=== PATIENT | male | born 1985 | race Caucasian/White ===

== ENCOUNTER 2020-06-06 05:35 | Inpatient (IN) | payer OTHER ==
[~2020-06-06] VITALS: Ht 177.8 cm; Wt 83.0 kg
--- NOTE | 2020-06-06 06:00 | NUR ---
IV ACCESS OBTAINED PT DRANK APPROX 600 ML WATER STATES HE HASN'T HAD ANYTHING TO DRINK IN 3 DAYS.OFFICER AT BEDSIDE; CALL BRYAN WITHIN REACH
[2020-06-06 06:20] LABS: HEMATOCRIT 46.5 % (39.0-50.0); HEMOGLOBIN 14.7 g/dl (14.0-18.0); IMMATURE GRANULOCYTES 0.4 % (0.0-5.0); MEAN CELL VOLUME 91.9 fL CALC (80.0-100.0); MEAN CORPUSCULAR HGB 29.1 pG CALC (26.0-32.0); MEAN CORPUSCULAR HGB CONC 31.6 g/dL CAL (32.0-36.0); NEUT# 14.61 thou/uL (1.82-7.42); RED BLOOD COUNT 5.06 mill/uL (4.70-6.10)
[2020-06-06 06:53] LABS: ALBUMIN 4.5 g/dL (3.2-5.0); BILIRUBIN, TOTAL 1.1 mg/dL (0.0-1.4); CREATININE 3.2 mg/dL (0.7-1.3); POTASSIUM 4.5 mmol/l (3.5-5.1); TOTAL PROTEIN 8.2 g/dL (6.3-8.2)
--- NOTE | 2020-06-06 07:00 | NUR ---
RECIVED REPORT FROM ASPEN
--- NOTE | 2020-06-06 07:15 | NUR ---
ASKED ABOUT URINE SAMPLE ASKED PT IF HE COULD PROVIDE A URINE AND HE DENIED SAYING THAT HE CANNOT URINE BECAUSE HE IS DEHYDRATED. PT ALSO REFUSED STRAIGHT CATH NOTIFIED
--- NOTE | 2020-06-06 08:40 | NUR ---
DISCONNECTED PT FROM MONITORING EQIPMENT AND FLUIDS FOR TRANSPORT TO CT. OFFICER ALONGSIDE ESCORTING.
--- NOTE | 2020-06-06 09:45 | NUR ---
COLLECTED URINE AND IT WAS SENT TO LAB. NOTIFIED. PT REPOSITIONED IN BED.
[2020-06-06 10:20] LABS: URINE BLOOD DIPSTICK LARGE (NEGATIVE); URINE COLOR BROWN; URINE GLUCOSE - DIPSTICK NEGATIVE (NEGATIVE); URINE KETONE NEGATIVE (NEGATIVE); URINE LEUK ESTERASE NEGATIVE (NEGATIVE); URINE PH 5.5 (4.5-8.0); URINE PROTEIN - DIPSTICK 100 mg/dL (NEG-TRACE); URINE SPECIFIC GRAVITY >=1.030; URINE UROBILINOGEN - DIPSTICK 0.2 E.U./dL (0.2)
[2020-06-06 10:22] LABS: URINE BILIRUBIN - DIPSTICK SMALL (NEGATIVE); URINE NITRITE - DIPSTICK NEGATIVE (Negative)
--- NOTE | 2020-06-06 10:30 | NUR ---
PT RESTING WITH EYES CLOSED
[2020-06-06 10:34] LABS: URINE FINE GRAN CAST FEW lpf; URINE SQUAMOUS EPITHELIAL CELL FEW EPI/hpf (0-FEW)
[2020-06-06 10:35] LABS: URINE AMORPH SEDIMENT MODERATE hpf (NONE-FER); URINE COARSE GRANULAR CAST FEW lpf
--- NOTE | 2020-06-06 11:32 | NUR ---
EKG COMPELTED FOR ADMISSION. PT UPDATED ON PLAN OF CARE. 2L OF FLUIDS COMPLETED AND PT ASKED FOR MORE WATER TO DRINK WHICH WAS PROVIDED. OFFICER CONTINUES TO BE AT BEDSIDE
--- NOTE | 2020-06-06 12:20 | NUR ---
GAVE REPORT TO DARSHANA
--- NOTE | 2020-06-06 12:26 | NUR ---
PATIENT ARRIVE VIA ED WHEELCHAIR WITH RN SUNNY AND COUNTY OFFICER AT SIDE. PATIENT NOTED TO HAVE JEANS AND BOOTS ON AND AT THAT TIME THIS NURSE NOTED THAT PATIENTS CLOTHES WERE SOAKED AND THAT PATIENTS BOOT WERE SOAKED AND ON PATIENTS FEET. IT WAS NOTED AT THIS TIME BY THIS NURSE THAT PATIENT HAD SOMETHING IN HIS POCKET. THIS NURSE ASKED OFFICER IF HE HAD SEARCHED PATIENT AND HE STATED THAT "I'M THE RELIEF OFFICER AND I ASSUME THE OTHER OFFICER DID". PATIENT STATED IT IS MY WALLET IN MY POCKET. AT THIS TIME PATIENTS CLOTHING REMOVED ENTIRELY PATIENT WALLET WAS OPENED IN FRONT OF PATIENT AND IT WAS NOTED THAT PATIENT HAD A LARGE AMOUNT OF SOAKED WET MONEY IN THE AMOUNT OF $465.00 IN [place] AND A SOCIAL SECURITY CARD AND TWO BANK CARDS. PATIENT AGREED TO HAVE VALUABLES LOCKED IN HOSPITAL SAFE. ENVIRONMENTAL HEALTH SAFETY MANAGER DONE AT THIS TIME. LUNG SOUNDS ARE CLEAR, PATIENT HAS MULTIPLE ANT BITES ALL OVER BODY AND LEFT SIDE OF FACE IS SWOLLEN TO INCLULED THE LEFT EYE. PUPIL IS REACTIVE AND NO DEFICITS NOTED. PATIENT IS ALERT AND ORIENTED TO PERSON PLACE AND TIME. PATIENT STATED HE IS A USER OF METH AND DOES NOT USE ALCOHOL. PATIENT DENEIS ANY PAIN AT THIS TIME AND DENIES ANY NEEDS. PATIENT BOWEL SOUNDS ARE PRESENT X 4 AND STATED HE HAD A BOWEL MOVEMENT ON THE May. PATIENT IS HANDCUFF TO BED WITH OFFICE AT BEDSIDE. PATIENT STATED HE WAS HUNRGY AND A WARM LUNCH WAS PROVIDED AT THIS TIME. SIDERAILS ARE UP CALL LIGHT AND IS WITHIN REACH.
[2020-06-06 12:29] VITALS: BP 122/78
--- NOTE | 2020-06-06 12:30 | NUR ---
PT TRANSPORTED TO [facility] SURG STABLE AND IN NO DISTRESS BY W/C. OFFICER ALONGSIDE. CARE ASSUMED TO DARSHANA Admission Note Report Given to: DARSHANA Transported by: X Wheelchair Stretcher Transported with: X Nurse X Transporter X Patent IV O2 Brown Stock Washer Location: ICU X [facility]
[2020-06-06 15:20] VITALS: BP 122/71
--- NOTE | 2020-06-06 15:59 | NUR ---
PATIENT GIVEN 50MG OF ULTRAM AT THIS TIME FOR PAIN OF 7-8 OF FACE AND ARM PIT ON LEFT SIDE. WILL CONTINUE TO MONITOR.
--- NOTE | 2020-06-06 16:24 | NUR ---
PATIENT RESTING IN BED AT THIS TIME. PATIENT STATES HIS PAIN LEVEL IS DOWN TO A 5 AT THIS TIME. PATIENT REMAINS HANDCUFFED TO BED BY LEFT WRIST AT THIS TIME WITH [facility] OFFICER AT BEDSIDE. PATIENT SIDERAILS ARE UP X 2 CALL LIGHT IS WITHIN REACH. TELE MONITIOR REMAINS IN PLACE AT THIS TIME AND IS BEING MONITORED BY ED.
[2020-06-06 19:00] VITALS: BP 122/71
--- NOTE | 2020-06-06 20:00 | NUR ---
PT RESTING QUIETLY IN BED AT TOP OF SHIFT. PT IS UNDER GUARD POTECTION DUE TO BEING ARRESTED. GUARD REMAINS AT BEDSIDE AND PT IS HANDCUFFED TO THE BED. CIRCULATION TO L HAND IS WNL. NO S/S OF CMPLICATIONS RELATED TO HANDCUFF. PT L SIDE OF FACE IS SWOLLEN. SCATTERED PUSTULES THROUGHOUT L SIDE OF FACE AND BODY, SUSPECTED ANT BITES. PT C/O PAIN IN LEFT SIDE OF FACE. MEDICATED WITH TYLENOL WHICH HAD SOME EFFECT AT REDUING PAIN LEVEL. BREATHING EVEN AND UNLABORED. IV SITE TO LAC RUNNING NS @ 150ML/HR. NO S/S OF INFECION OR INFILTRATION AT SITE. BS ACTIVE X 4, BM TODAY. LUNGS CTA THROUGHOUT. HEART RYTHM AND SOUNDS WNL. SAFETY PRECAUTIONS IN PLACE, BED IN LOWEST POSITION, CALL LIGHT WITHIN REACH. WILL CONTINUE TO MONITOR.
[2020-06-07] VITALS: BP 110/62
--- NOTE | 2020-06-07 00:33 | NUR ---
PT RESTING QUIETLY AT THIS TIME. NO COMPLAINTS VOICED. PT REMAINS IN POLICE CUSTODY. CIRCULATION REMINAS WNL TO LEFT HAND. WILL MONITOR.
[2020-06-07 04:00] VITALS: BP 118/78
--- NOTE | 2020-06-07 04:29 | NUR ---
PT RESTING QUIETLY IN BED, REMAINS IN POLICE CUSTODAY. POLICE REMAIN AT BEDSIDE FOR SUPERVISION. NO COMPLAINTS VOICED. BREATHING EVEN AND UNLABORED. WILL CONTINUE TO MONITOR
--- NOTE | 2020-06-07 05:41 | NUR ---
B/P RECHECKED MANUALLY, 160/80. PT KENY ANY S/S RELATED TO ELEVATED B/P. SAFETY PRECAUTIONS IN PLACE. WILL MONITOR
[2020-06-07 05:45] LABS: MEAN CELL VOLUME 90.8 fL CALC (80.0-100.0); MEAN CORPUSCULAR HGB 29.2 pG CALC (26.0-32.0); MEAN CORPUSCULAR HGB CONC 32.2 g/dL CAL (32.0-36.0); RED BLOOD COUNT 4.45 mill/uL (4.70-6.10); RED CELL DISTRI WIDTH 12.8 % (11.5-15.5)
[2020-06-07 05:50] LABS: HEMATOCRIT 40.4 % (39.0-50.0)
[2020-06-07 05:54] LABS: ALKALINE PHOSPHATASE 70 u/l (38-126); ANION GAP 10 (6-22 (CALC)); BILIRUBIN, TOTAL 0.8 mg/dL (0.0-1.4); BUN 43 mg/dL (9-20); CALCULATED LDLCHOLESTEROL 46 mg/dL (62-129 (CALC)); CARBON DIOXIDE 26 mmol/l (22-30); CHLORIDE 104 mmol/l (95-108); HDL CHOLESTEROL 29 mg/dL (>=40); MAGNESIUM 2.2 mg/dL (1.6-2.3); POTASSIUM 4.6 mmol/l (3.5-5.1); SODIUM 134 mmol/l (137-146); TOTAL CHOLESTEROL 87 mg/dl (0-199); TOTAL TRIGLYCERIDES 62 mg/dl (30-149); VLDL CHOLESTROL 12 mg/dl (5-56 (CALC))
[2020-06-07 06:00] LABS: BUN/CREATININE RATIO 31 (12-20 (CALC)); CREATININE 1.4 mg/dL (0.7-1.3); GFR 59 ML/MIN (>=60 (CALC)); GFR FOR AFR.AMER. > 60 ML/MIN (>=60 (CALC)); TOTAL PROTEIN 5.9 g/dL (6.3-8.2)
[2020-06-07 06:11] LABS: SGOT/AST 2022 u/l (17-59)
--- NOTE | 2020-06-07 07:05 | NUR ---
PATIENT LAYING IN BED WITH EYES OPEN AT THIS TIME. PATIENT DENIES ANY PAIN AT THIS TIME. OPERATIONS TECH DONE SEE INTERVENTIONS. LUNG SOUNDS ARE CLEAR. PATIENT REMAINS TO HAVE PUSTULA'S ALL OVER FACE AND UPPER BODY AND BILATERAL ARMS. THERE IS A GUARD AT BEDSIDE AND PATIENT IS HANDCUFFED TO LEFT SIDERAIL BY LEFT WRIST AT THIS TIME. NO BRYAN AREA NOTED ON LEFT WRIST AND NO OBSTRUTIVE BLOOD FLOW NOTED. SIDERAILS ARE UP X 2 CALL LIGHT IS WITHIN REACH AND PAITENT IS ALERT AND ORIENTED X 3.
[2020-06-07 07:19] VITALS: BP 103/67
[2020-06-07 10:30] VITALS: BP 108/60
--- NOTE | 2020-06-07 11:43 | NUR ---
PATIENT LAYING IN BED DENIES ANY PAIN AT THIS TIME. SIDERRAILS ARE UP X2 PATIENT HANDCUFFED TO LEFT BEDRAIL BY LEFT WRIST NO OBSTRUCTION OF BLOOD FLOW TO WRIST OR HAND. DEPUTY AT BEDSIDE. CALL LIGHT WITHIN REACH. PATIENT CONTINUES TO HAVE SKIN PUSTULA'S ON FACE AND UPPER BODY AND STRACHES ARE DRY.
[2020-06-07 14:40] VITALS: BP 126/85
--- NOTE | 2020-06-07 15:48 | NUR ---
PATIENT LAYING IN BED AT THIS TIME REMAINS HANDCUFF TO BED WITH LEFT WRIST. NO NOTED SWELLING OR OBSTRUCTION OF BLOODFLOW NOTED. PATIENT ALERT AND ORIENTED AND DENIES ANY PAIN AT THIS TIME. DEPUTY OFFICER REMAINS AT BEDSIDE.
[2020-06-07 19:00] VITALS: BP 137/77
--- NOTE | 2020-06-07 21:34 | NUR ---
PT RESTING IN BED WITH EYES CLOSED AT BEGGINING OF SHIFT. UPON ASSESSMENT PT WAS EASILY WOKEN UP. DCSO REMAINS AT THE BEDSIDE. PT REMAINS CUFFED TO THE HOSPITAL BED, CIRCULATION WNL. THE OFFICER UNCUFFS THE PATIENT TO UTILIZE THE BATHROOM. PT DENIES PAIN AT THIS TIME. BREATHING EVEN AND UNLABORED, LUNGS CTA. PT CONTINUES TO DENY BM, REFUSES MOM. ABDOMEN SOFT AND NON-TENDER. BS ACTIVE X 4 QUADS. RASH/BUG BITES REMAIN TO LEFT SIDE OF FACE AND BODY. SAFETY PRECAUTIONS IN PLACE, WILL CONTINUE TO MONITOR.
[2020-06-08] VITALS: BP 125/77
--- NOTE | 2020-06-08 00:25 | NUR ---
PT RESTING IN BED, DCSO REMAINS AT BEDSIDE. LEFT HAND CIRCULATION REMAINS WNL. DENIES PAIN, NO COMPLAINTS VOICED. NO S/S OF DISTRESS. SAFETY PRECAUTIONS IN PLACE, BED IN LOWEST POSITION, CALL LIGHT WITHIN REACH.
[2020-06-08 04:00] VITALS: BP 119/76
--- NOTE | 2020-06-08 04:30 | NUR ---
PT RRESTING IN BED, OFFICER REMAINS AT BEDSIDE. CIRCULATION REMAINS WNL TO LEFT HAND/ARM. PT REMAINS CUFFED TO BED BY LEFT WRIST, OFFICER DOES UNCUFF PATIENT TO UTILIZE THE BATHROOM AND SHOWER. NO COMPLAINTS VOICED AT THIS TIME. DOES REPORT SOME PAIN BUT HAS REQUESTED PAIN MED WITH MORNING MEDS. SAFETY PRECAUTIONS IN PLACE, WILL MONITOR
[2020-06-08 05:37] LABS: HEMATOCRIT 39.6 % (39.0-50.0); HEMOGLOBIN 12.8 g/dl (14.0-18.0); MEAN CELL VOLUME 91.2 fL CALC (80.0-100.0); MEAN CORPUSCULAR HGB 29.5 pG CALC (26.0-32.0); MEAN CORPUSCULAR HGB CONC 32.3 g/dL CAL (32.0-36.0); RED BLOOD COUNT 4.34 mill/uL (4.70-6.10); RED CELL DISTRI WIDTH 12.8 % (11.5-15.5)
[2020-06-08 06:09] LABS: ALBUMIN 2.8 g/dL (3.2-5.0); ALKALINE PHOSPHATASE 76 u/l (38-126); ANION GAP 7 (6-22 (CALC)); BILIRUBIN, TOTAL 0.9 mg/dL (0.0-1.4); CARBON DIOXIDE 25 mmol/l (22-30); CHLORIDE 108 mmol/l (95-108); CREATININE 0.9 mg/dL (0.7-1.3); GFR > 60 ML/MIN (>=60 (CALC)); GFR FOR AFR.AMER. > 60 ML/MIN (>=60 (CALC)); MAGNESIUM 1.7 mg/dL (1.6-2.3); SODIUM 137 mmol/l (137-146); TOTAL PROTEIN 5.6 g/dL (6.3-8.2)
[2020-06-08 06:20] LABS: BUN 20 mg/dL (9-20); BUN/CREATININE RATIO 22 (12-20 (CALC))
[2020-06-08 06:21] LABS: SGOT/AST 1016 u/l (17-59)
[2020-06-08 06:33] LABS: CPK 8240 u/l (52-200)
--- NOTE | 2020-06-08 07:10 | NUR ---
PATIENT RESTING IN BED AT THIS TIME. AGRICULTURAL SYSTEMS SPECIALIST DONE AT THIS TIME. LEFT SIDE OF PATIENT FACE HAS DECREASED SWELLING NOTED. SKIN STILL HAS MULTIPLE PUSTULA'S THAT ARE DRY AND NO DRAINAGE NOTED. PATIENT REMAINS HANDCUFFED TO BEDSIDE AND WITHOUT ANY OBSTRUCTIONS TO BLOOD FLOW TO LEFT WRIST. OFFCIER REMAINS AT BEDSIDE SIDERAILS UP CALL LIGHT IS WITHIN REACH.
[2020-06-08 07:45] VITALS: BP 117/72
--- NOTE | 2020-06-08 09:10 | NUR ---
DR. PINA IN TO SEE PATIENT AT THIS TIME.
--- NOTE | 2020-06-08 12:00 | NUR ---
PATIENT RESTING IN BED AT THIS TIME EATING LUNCH OFFICER AT BEDSIDE. PATIENT HANDCUFF TO BED BY LEFT WRIST NO SWELLING OR OBSTRUCTION OF BLOOD FLOW. SIDERAILS ARE UP X2 CALL LIGHT WITHIN REACH.
[2020-06-08 14:30] VITALS: BP 123/79
--- NOTE | 2020-06-08 16:15 | NUR ---
PATIENT LAYING IN BED AT THIS TIME. PATIENT DENIES ANY NEEDS AND OR PAIN. SIDERAILS ARE UP X 2. PATIENT REMAINS HANDCUFFED TO SIDERAIL ON LEFT SIDE. THERE IS NO EVIDENCE OF SWELLING ON THE LEFT WRIST AND NO EVIDENCE OF BLOOD FLOW OBSTRUCTION TO HAND OR ARM AT THIS TIME. OFFICER REMAINS AT BEDSIDE AT THIS TIME.
--- NOTE | 2020-06-08 19:08 | NUR ---
REPORT FROM VALERIY ZUNIGA. ASSUME PT CARE.
[2020-06-08 19:15] VITALS: BP 125/76
--- NOTE | 2020-06-08 19:23 | NUR ---
PT NOTED SITTING UP IN BED WATCHING TV. ALERT AND ORIENTED. X1 AZAM AT BEDSIDE PT CUFFED TO BED BY LEFT WRIST. NO APPRENT DISTRESS NOTED. RESPIRATIONS EVEN AND UNLABORED. PT C/O PAIN TO FACE, BACK AND SHOULDER. MEDICATED WITH PRN ULTRAM. NO OTHER CURRENT WANTS OR NEEDS. IV SITE FLUSHED WITH BRISK BLOOD RETURN NOTED. IVF INFUSING WITHOUT DIFFICULTY. CALL LIGHT WITHIN REACH. WILL CONTINUE TO MONITOR.
--- NOTE | 2020-06-08 23:56 | NUR ---
PT RESTING IN BED WITH EYES CLOSED. NO APPARENT DISTRESS NOTED. RESPIRATIONS EVEN AND UNLABORED. X1 AZAM AT BEDSIDE. PT REMAINS CUFFED TO BED BY LEFT ARM. CALL LIGHT WITHIN REACH. WILL CONTINUE TO MONITOR.
[2020-06-09 04:00] VITALS: BP 135/76
[2020-06-09 05:06] LABS: HEMATOCRIT 38.5 % (39.0-50.0); HEMOGLOBIN 12.3 g/dl (14.0-18.0); IMMATURE GRANULOCYTES 0.3 % (0.0-5.0); MEAN CELL VOLUME 91.2 fL CALC (80.0-100.0); MEAN CORPUSCULAR HGB 29.1 pG CALC (26.0-32.0); MEAN CORPUSCULAR HGB CONC 31.9 g/dL CAL (32.0-36.0); NEUT# 6.41 thou/uL (1.82-7.42); RED BLOOD COUNT 4.22 mill/uL (4.70-6.10); RED CELL DISTRI WIDTH 12.8 % (11.5-15.5)
[2020-06-09 05:31] LABS: ALBUMIN 2.8 g/dL (3.2-5.0); ALKALINE PHOSPHATASE 76 u/l (38-126); ANION GAP 8 (6-22 (CALC)); BILIRUBIN, TOTAL 0.8 mg/dL (0.0-1.4); BUN 12 mg/dL (9-20); BUN/CREATININE RATIO 14 (12-20 (CALC)); CARBON DIOXIDE 25 mmol/l (22-30); CHLORIDE 106 mmol/l (95-108); CREATININE 0.8 mg/dL (0.7-1.3); GFR > 60 ML/MIN (>=60 (CALC)); GFR FOR AFR.AMER. > 60 ML/MIN (>=60 (CALC)); POTASSIUM 3.9 mmol/l (3.5-5.1); SGOT/AST 508 u/l (17-59); SODIUM 135 mmol/l (137-146); TOTAL PROTEIN 5.5 g/dL (6.3-8.2)
[2020-06-09 05:47] LABS: CPK 2357 u/l (52-200)
--- NOTE | 2020-06-09 07:39 | NUR ---
SHIFT CHANGE REPORT, PT AWAKE AND ALERT, DISORIENTED TO DATE & TIME, C/O ACHING PAIN TO FACE AND BACK @ 610 AT THIS TIME, IVF INFUSING, CALL BRYAN IN [facility], GUARD IN ROOM.
[2020-06-09 07:45] VITALS: BP 123/75
[2020-06-09] MEDS ORDERED: KEFLEX500 MG PO (08:37)
--- NOTE | 2020-06-09 12:42 | NUR ---
SHERIFF JOSE GOULD FROM [facility] VISITED PT, ADVISED HIM HE IS RELEASED AT THIS TIME (1230) AND MUST GO TO COURT ADVISED, ALSO THAT [facility] IS NOT RESPONSIBLE FOR ANY CHARGES INCURED HERE AT THIS HOSPITAL OF 1230 TODAY.
--- NOTE | 2020-06-09 14:19 | NUR ---
SECURITY DELIVERED PT'S BELONGING FROM SAFE, PT CHECKED AND STATED ALL WAS OK.
--- NOTE | 2020-06-09 14:19 | NUR ---
Discharge instructions given. Patient verbalizes understanding of same. Discharged in stable condition via Wheelchair to Home with *Other. All belongings sent with pt.
== END 2020-06-09 14:04 | DRG 603 ==
LOC: ED 05:35 → ED-I 10:45 → ED 10:55 → MS2 10:56
PROVIDERS: Nurse Practitioner; ADMIT Internal Medicine; ATTEND Internal Medicine
DX: L03.213 Periorbital cellulitis (principal); N17.9 Acute kidney failure, unspecified; N39.0 Urinary tract infection, site not specified; M62.82 Rhabdomyolysis; B17.9 Acute viral hepatitis, unspecified; E86.0 Dehydration; L30.9 Dermatitis, unspecified; S00.81XA Abrasion of other part of head, initial encounter; S20.412A Abrasion of left back wall of thorax, initial encounter; S20.411A Abrasion of right back wall of thorax, initial encounter; S20.313A Abrasion of bilateral front wall of thorax, initial encounter; F32.9 Major depressive disorder, single episode, unspecified; F41.9 Anxiety disorder, unspecified; F17.200 Nicotine dependence, unspecified, uncomplicated; X58.XXXA Exposure to other specified factors, initial encounter; S40.812A Abrasion of left upper arm, initial encounter; S40.811A Abrasion of right upper arm, initial encounter; F15.10 Other stimulant abuse, uncomplicated; S20.363A Insect bite (nonvenomous) of bilateral front wall of thorax, initial encounter; S20.462A Insect bite (nonvenomous) of left back wall of thorax, initial encounter; S20.461A Insect bite (nonvenomous) of right back wall of thorax, initial encounter; W57.XXXA Bitten or stung by nonvenomous insect and other nonvenomous arthropods, initial encounter; Z59.0 Homelessness; Z20.822 Contact with and (suspected) exposure to COVID-19
CPT/HCPCS: G0378